=== PATIENT | male | born 1985 | race African-American/Black ===

== ENCOUNTER 2020-01-10 11:04 | Emergency (ER) | payer OTHER ==
[~2020-01-10] VITALS: Ht 175.3 cm; Wt 130.2 kg
[2020-01-10 12:10] VITALS: BP 138/122
== END 2020-01-10 12:10 | disposition home or self-care (01) ==
LOC: M.ERS 11:04
DX: R79.9 Abnormal finding of blood chemistry, unspecified (principal); Z20.828 Contact with and (suspected) exposure to other viral communicable diseases; I10 Essential (primary) hypertension